=== PATIENT | male | born 1960 | race Caucasian/White ===

== ENCOUNTER 2018-07-21 23:35 | Emergency (ER) | payer OTHER ==
[~2018-07-21] VITALS: Ht 172.7 cm; Wt 108.9 kg
--- OUTSIDE RECORDS SUMMARY | 2018-07-21 23:46 | XMS REPORT | Continuity of Care Document ---
Demographics Preferred Language Unknown Marital Status Unknown Samaritan Affiliation Unknown Race Unknown Ethnic Group Unknown Author Author [facility] [place] Address Unknown Phone Unavailable Allergies There is no data. Medications There is no data. Problems Date Dx Coded Attending Type Code Diagnosis Diagnosed By 12/16/2012 522.5 PERIAPICAL ABSCESS WITHOUT SINUS Procedures There is no data. Results There is no data. Encounters ACCT No. Visit Date/Time Discharge Status Pt. Type Provider Facility Loc./Unit Complaint [id number] 12/16/2012 10:38:00 Document Registration
--- NOTE | 2018-07-22 01:28 | ED General ---
General Chief Complaint: Lower Extremity Stated Complaint: LEFT KNEE PAIN-PULLED SOMTHING- Nursing Triage Note: left posterior knee pain Nursing Sepsis Screen: No Definite Risk Source of Information: Patient Exam Limitations: No Limitations Allergies and Home Medications Allergies Coded Allergies: No Known Drug Allergies (Unverified , 07/22/18) Home Medications No Active Prescriptions or Reported Meds Past Enffnmg-Cojvvd-Fozbqf Hx Patient Social History Alcohol Use: Rarely Uses Recreational Drug Use: No Smoking Status: Current Everyday Smoker Type Used: Cigarettes 2nd Hand Smoke Exposure: Yes Recent Foreign Travel: No Contact w/Someone Who Travel: No Recent Infectious Disease Expo: No Recent Hopitalizations: No Immunizations Up To Date Tetanus Booster (TDap): Unknown Seasonal Allergies Seasonal Allergies: No Past Medical History Surgeries: Yes (back, skin graft) Orthopedic Respiratory: No Cardiac: No Neurological: No Genitourinary: No Gastrointestinal: No Musculoskeletal: Yes Chronic Back Pain Endocrine: No HEENT: No Cancer: No Psychosocial: No Integumentary: No Blood Disorders: No Physical Exam Vital Signs Vital Signs - First Documented 07/21/18 23:58 Temp 98.9 Pulse 79 Resp 18 B/P (MAP) 173/99 (123) Pulse Ox 96 O2 Delivery Room Air Capillary Refill : Less Than 3 Seconds Height, Weight, BMI Height: 5'8.00" Weight: 240lbs. oz. 108.121519db; BMI Method:Stated Progress/Results/Core Measures Suspected Sepsis Recent Fever Within 48 Hours: No Infection Criteria Present: None New/Unexplained Altered Menta: No Sepsis Screen: No Definite Risk SIRS Temperature:98.9 Pulse: 79 Respiratory Rate: 18 Blood Pressure 173 /99 Mean: 123 Results/Orders My Orders Orders - TIM MEDINA MD Knee, Left, 3 Views (07/22/18 00:37) Vital Signs/I&O 07/21/18 23:58 Temp 98.9 Pulse 79 Resp 18 B/P (MAP) 173/99 (123) Pulse Ox 96 O2 Delivery Room Air Capillary Refill : Less Than 3 Seconds Blood Pressure Mean: 123 Departure Impression Primary Impression: Left knee pain Qualified Codes: M25.562 - Pain in left knee Additional Impression: Left knee injury Qualified Codes: S89.92XA - Unspecified injury of left lower leg, initial encounter Disposition: 01 HOME, SELF-CARE Condition: Stable Departure-Patient Inst. Decision time for Depature: 01:26 Referrals: NO,LOCAL PHYSICIAN (PCP/Family) Primary Care Physician Patient Instructions: Jean's Cyst Add. Discharge Instructions: You may treat pain with ibuprofen up to 600 mg every 6 hours as needed. Add Tylenol (acetaminophen) up to 1000 mg every 6 hours as needed for additional relief. You may ice in 20 minute intervals as well. Elevation and compressive wrapping with an Tony wrap might also help with pain. Contact occupational health at the number provided on your Worker's Compensation form before scheduling your ultrasound. Return to care if you have worsening symptoms. All discharge instructions reviewed with patient and/or family. Voiced understanding. Scripts No Active Prescriptions or Reported Meds TIM MEDINA MD Jul 22, 2018 01:28
[2018-07-22 01:35] VITALS: BP 174/102
--- NOTE | 2018-07-22 06:55 | Diagnostic Imaging Report ---
INDICATION: Left knee pain. FINDINGS: 3 views. The left knee shows no fractures or dislocation. Articulating surfaces are smooth. No loose bodies. IMPRESSION: Normal left knee. Dictated by: Dictated on workstation # [id number]
== END 2018-07-22 01:38 | disposition home or self-care (01) ==
LOC: EDUNIT# 23:35 → ER 23:40
DX: S89.92XA Unspecified injury of left lower leg, initial encounter (principal); F17.210 Nicotine dependence, cigarettes, uncomplicated; Z98.890 Other specified postprocedural states; Z94.5 Skin transplant status; X50.0XXA Overexertion from strenuous movement or load, initial encounter
CPT/HCPCS: 73562

== ENCOUNTER → 2018-07-23 | Outpatient (CLI) | payer BC ==
--- NOTE | 2018-07-23 15:52 | Diagnostic Imaging Report ---
INDICATION: Left leg pain. Left leg venous Doppler study was performed in the routine fashion with color flow Doppler and waveform analysis. FINDINGS: The left common femoral vein, superficial femoral vein, popliteal vein and visualized portion of the posterior tibial vein show normal compressibility and venous flow patterns. There is normal augmentation. There is a Jean's cyst in left popliteal fossa measuring 3.8 x 2.5 x 1.1 centers. IMPRESSION: No evidence of deep vein thrombosis of the major veins of the left leg. Dictated by: Dictated on workstation # [id number]
== END ==
LOC: RAD 15:07
PROVIDERS: ATTEND Nurse Practitioner Family
DX: M79.605 Pain in left leg (principal)

== ENCOUNTER 2019-06-15 09:15 | Outpatient (CLI) | payer BC ==
[~2019-06-15] VITALS: Ht 172 cm; Wt 100.3 kg
[2019-06-15] MEDS ORDERED: IBUP-2185 PO (09:37)
[2019-06-15] MEDS ORDERED: LISI40TA PO (09:37)
[2019-06-15] MEDS ORDERED: HYDR12.56 PO (09:37)
[2019-06-15 09:44] VITALS: BP 122/82
[2019-06-15 10:16] LABS: BILIRUBIN,URINE NEGATIVE (NEGATIVE); CLARITY,URINE CLEAR; COLOR,URINE YELLOW; GLUCOSE, URINE (UA) NEGATIVE (NEGATIVE); KETONES,URINE NEGATIVE (NEGATIVE); LEUKOCYTE ESTERASE ,URINE NEGATIVE (NEGATIVE); NITRITE,URINE NEGATIVE (NEGATIVE); PROTEIN,URINE NEGATIVE (NEGATIVE)
[2019-06-15 10:23] LABS: BASOPHILS % (AUTO) 0 % (0-10); EOSINOPHILS # (AUTO) 0.5 10^3/uL (0.0-0.3); EOSINOPHILS % (AUTO) 5 % (0-10); HEMATOCRIT 46 % (40-54); HEMOGLOBIN 16.1 G/DL (13.3-17.7); LYMPHOCYTES % (AUTO) 19 % (12-44); MEAN CORPUSCULAR HEMOGLOBIN 31 PG (25-34); MEAN CORPUSCULAR HGB CONC 35 G/DL (32-36); MEAN CORPUSCULAR VOLUME 88 FL (80-99); MEAN PLATELET VOLUME 12.4 FL (7.4-10.4); MONOCYTES # (AUTO) 0.9 X 10^3 (0.0-1.0); MONOCYTES % (AUTO) 9 % (0-12); NEUTROPHILS # (AUTO) 6.9 X 10^3 (1.8-7.8); NEUTROPHILS % (AUTO) 67 % (42-75); PLATELET COUNT 143 10^3/uL (130-400); RED CELL DISTRIBUTION WIDTH 13.6 % (10.0-14.5); WHITE BLOOD COUNT 10.3 10^3/uL (4.3-11.0)
[2019-06-15 10:27] LABS: INR 0.8 (0.8-1.4); PROTHROMBIN TIME PATIENT 11.6 SEC (12.2-14.7)
[2019-06-15 10:31] LABS: BACTERIA,URINE NEGATIVE /HPF; SQUAMOUS EPITHELIAL CELL,UR RARE /HPF
[2019-06-15 10:37] LABS: ALANINE AMINOTRANSFERASE 45 U/L (0-55); ALBUMIN 4.7 GM/DL (3.2-4.5); ALKALINE PHOSPHATASE 76 U/L (40-136); BILIRUBIN,TOTAL 0.4 MG/DL (0.1-1.0); BUN/CREATININE RATIO 27; CALCIUM 9.6 MG/DL (8.5-10.1); CARBON DIOXIDE 22 MMOL/L (21-32); CHLORIDE 105 MMOL/L (98-107); CREATININE SERUM 0.96 MG/DL (0.60-1.30); GFR ESTIMATED > 60; GLUCOSE 101 MG/DL (70-105); POTASSIUM 3.9 MMOL/L (3.6-5.0); SODIUM 140 MMOL/L (135-145); TOTAL PROTEIN 7.5 GM/DL (6.4-8.2)
[2019-06-15 10:43] LABS: ERYTHROCYTE SEDIMENTATION RATE 1 MM/HR (0-30)
--- NOTE | 2019-06-15 11:16 | Diagnostic Imaging Report ---
INDICATION: Preoperative evaluation for knee replacement. COMPARISON: None FINDINGS: Frontal and lateral views of the chest demonstrate normal heart size and pulmonary vascularity. The lungs are clear. There are no signs of infiltrate, pleural effusions or pneumothoraces. The visualized osseous structures show no acute abnormalities. IMPRESSION: 1. No acute process. No signs of infiltrates, effusions or pneumothoraces. Dictated by: Dictated on workstation # [id number]
== END 2019-06-15 15:30 ==
LOC: PREOP 09:15
PROVIDERS: ATTEND Orthopaedic Surgery
DX: Z01.818 Encounter for other preprocedural examination (principal); Z01.812 Encounter for preprocedural laboratory examination; M17.11 Unilateral primary osteoarthritis, right knee
CPT/HCPCS: 36415; 71046; 80053; 81000; 85025; 85610; 85652; 86850; 86900; 86901; 87081; 93005

== ENCOUNTER 2019-06-23 05:54 | Inpatient (IN) | payer BC ==
--- NOTE | 2019-06-16 05:20 | HISTORY AND PHYSICAL ---
DATE OF SERVICE: ADMISSION HISTORY AND PHYSICAL This will be for inpatient admission on 06/23/2019 for right total knee arthroplasty. The patient will require regular inpatient admission for pain management and need for physical therapy and impaired mobility. HISTORY: The patient is a 58-year-old gentleman with progressively worsening right knee pain. Radiographs reveal severe tricompartmental osteoarthritis. He has undergone treatment with injections, activity modifications, and anti-inflammatories without relief. Due to progressive functional impairment and failure to improve with conservative measures, the patient was elected to proceed with surgical intervention. REVIEW OF SYSTEMS: No chest pain, no shortness of breath, no dysuria. PAST MEDICAL HISTORY: Hypertension. PAST SURGICAL HISTORY: Lumbar spine and skin graft. FAMILY HISTORY: Noncontributory. PRIMARY CARE PROVIDER: Dr. Rodriguez. MEDICATIONS: Lisinopril and Chantix. ALLERGIES: No known drug allergies. SOCIAL HISTORY: The patient is a 2-pack per day smoker and drinks alcohol regularly. PHYSICAL EXAMINATION: GENERAL: The patient is well developed, well nourished, in no acute distress. HEENT: Normocephalic, atraumatic. Pupils are equal, round, reactive to light. Oropharynx is clear. NECK: Supple, no lymphadenopathy. LUNGS: Clear to auscultation bilaterally. HEART: Regular rate and rhythm. ABDOMEN: Soft, nontender, nondistended. EXTREMITIES: The right knee demonstrates varus alignment. He is tender along his medial joint line and has prominent osteophyte formation medially. He has patellofemoral crepitus with range of motion of 0/2/135. He is ligamentously stable in all planes. He has a moderate effusion noted. He ambulates with an antalgic gait. IMPRESSION: Right knee severe osteoarthritis, unresponsive to conservative measures. PLAN: Right total knee arthroplasty. The risks, benefits, options, ramifications and recovery have been discussed at length with the patient. He understands and wishes to proceed. Job ID: [id number] DocumentID: [id number] Dictated Date: 06/10/2019 11:34:43 Bell Spinner Date: 06/10/2019 12:08:57 Dictated By: ARACELI AGUDELO MD
[~2019-06-23] VITALS: Ht 172 cm; Wt 100.3 kg
[2019-06-23] VITALS (11 sets, daily range): BP systolic 106–142; BP diastolic 66–91
[~2019-06-23 05:54] MED LIST: HYDR12.56 PO; IBUP-2185 PO; LISI40TA PO
[2019-06-23] MEDS ORDERED: MIDAZOLAM 2 MG/2 ML (VERSED) VIAL ONE (06:41)
[2019-06-23] MEDS ORDERED: fentaNYL INJECTION 100 MCG/2 ML AMP ONE (06:41)
[2019-06-23] MEDS ORDERED: BUPIVACAINE 0.25% 30 ML (SENSORCAINE) VIAL ONE (06:41)
[2019-06-23] MEDS ORDERED: CEFUROXIME 1.5 GM (ZINACEF) VIAL ONE ×2 (06:46→06:47)
[2019-06-23] MEDS ORDERED: WATER (STERILE) FOR INJECTION 20 ML ONE (06:46)
[2019-06-23] MEDS ORDERED: LIDOCAINE PF 2% 5 ML (XYLOCAINE) VIAL ONE (07:12)
[2019-06-23] MEDS ORDERED: INTRA-ARTICULAR IU ONE ×5 (07:45)
[2019-06-23] MEDS ORDERED: HYDROmorphone 2 MG/ML VIAL (DILAUDID) ONE (08:05)
[2019-06-23] MEDS ORDERED: BUPIVACAINE 0.5% 30 ML (SENSORCAINE) VIAL ONE (08:10)
[2019-06-23] MEDS ORDERED: LACTATED RINGERS 1,000 ML IV PRN (08:23)
[2019-06-23] MEDS ORDERED: CEFUROXIME INJECTION 1,500 MG in WATER (STERILE) FOR INJECTION 15 ML IV ONE (08:30)
[2019-06-23] MEDS ORDERED: TRANEXAMIC ACID 100 MG/ML 10 ML INJECTION IV ONE (08:38)
[2019-06-23] MEDS ORDERED: proPOfol 200 MG/20 ML (DIPRIVAN) VIAL IV ONE (08:38)
[2019-06-23] MEDS ORDERED: ONDANSETRON 4 MG/2 ML (SDV) Z0FRAN ONE (08:38)
[2019-06-23] MEDS ORDERED: SEVOFLURANE (ULTANE) 15 ML INHAL SOLN ONE ×2 (09:01→11:55)
--- NOTE | 2019-06-23 09:06 | Progress Note-Pre Operative ---
Pre-Operative Progress Note H&P Reviewed The H&P was reviewed, patient examined and no changes noted. Date Seen by Provider: Jun 23, 2019 Time Seen by Provider: 07:00 Date H&P Reviewed: Jun 23, 2019 Time H&P Reviewed: 06:58 Pre-Operative Diagnosis: right knee primary osteoarthritis ARACELI AGUDELO MD Jun 23, 2019 09:06
--- NOTE | 2019-06-23 09:08 | Progress Note-Post Operative ---
Post-Operative Progess Note Surgeon (s)/[employer] (s) Surgeon ARACELI AGUDELO MD [employer]: Vinod Perkins Pre-Operative Diagnosis right knee primary osteoarthritis Post-Operative Diagnosis right knee primary osteoarthritis Procedure & Operative Findings Date of Procedure 06/23/19 Procedure Performed/Findings right total knee arthroplasty Anesthesia Type GETA Estimated Blood Loss Estimated blood loss (mL): minimal Specimens/Packing Specimens Removed none Packing: none ARACELI AGUDELO MD Jun 23, 2019 09:08
--- NOTE | 2019-06-23 09:11 | D/C HH Face to Face Order ---
D/C Face to Face Orders Reconcile Patient Problems Problems Reviewed?: Yes Instructions for Patient Via [employer], Patient Instructions/FollowUp: three weeks Physician to follow Patient: three weeks Discharge Diet for Home: Regular Diet Patient Data-Allergies,Ht & Wt Patient Allergies: Coded Allergies: No Known Drug Allergies (Unverified , 06/15/19) Height (Feet): 5 Height (Inches): 8.00 Weight (Pounds): 240 Home Health Need/Face to Face Date of Face to Face: Jun 23, 2019 Clinical Findings: Instability, Muscle weakness, Pain with ambulation, Unsteady gait I have seen Pt cajn-nk-cabs: Yes Discharged To: Home Diagnosis/Conditions: right total knee arthroplasty Patient is Homebound due to: Martínez fall risk due to instabilty, Muscle weakness, Pain w/ambulation Homebound Status Due to the above stated illness, injury or surgical procedure (medical condition or diagnosis) and associated clinical findings, the patient is homebound because of his/her inability to leave home except with aid of a supportive device and/or person AND leaving the home requires a considerable and taxing effort or is medically contraindicated. Pt req the following assistanc: [facility] Nursing Orders DC right knee nuzhat and apply steri strips 07/08/19 Home Health Infusion Therapy Line Start Date: Jun 23, 2019 Therapy Orders Therapy Orders: Physical Therapy, PT to assess for OT Therapy Specific Orders: Eval assistive deivces, Teach strategies/cognitive def icits, Gait training, Increase strength/endurance, Provider maintenance therapy, Restore ROM Certify Stmt I certify that this patient is under my care and that I, a nurse practitioner or a physician; a assistant signal maintainer working with me, had a face to face encounter that - meets the physician face to face encounter requirements with this patient as dated. ARACELI AGUDELO MD Jun 23, 2019 09:11
[2019-06-23] MEDS ORDERED: ONDANSETRON 4 MG/2 ML (SDV) Z0FRAN IVP PRN ×2 (09:15)
[2019-06-23] MEDS ORDERED: ACETAMINOPHEN 325 MG TABLET PO PRN (09:15)
[2019-06-23] MEDS ORDERED: HYDROmorphone 2 MG/ML VIAL (DILAUDID) IV ONE (09:15)
[2019-06-23] MEDS ORDERED: diphenhydrAMINE 50 MG/ML INJ (BENADRYL) IVP PRN (09:15)
--- NOTE | 2019-06-23 09:40 | Diagnostic Imaging Report ---
INDICATION: Status post knee replacement. COMPARISON: None. FINDINGS: Two views of the right knee were obtained. Expected postoperative changes are seen from right knee total arthroplasty. Femoral and tibial components appear well-seated. There is no evidence of periprosthetic fracture. There is a small amount of subcutaneous emphysema in the soft tissues over the knee. Skin nuzhat are seen centrally over the anterior aspect of the knee. No unexpected radiopaque foreign bodies are identified. IMPRESSION: Expected postsurgical changes from right knee total arthroplasty, as described above. No unexpected radiopaque foreign bodies. Dictated by: Dictated on workstation # [id number]
--- NOTE | 2019-06-23 09:56 | Progress Note ---
Standard Progress Note Progress Notes/Assess & Plan Date Seen by a Provider: Jun 23, 2019 Time Seen by a Provider: 09:54 Progress/Assessment & Plan post op check no complaints radiographs--HW well positioned without fracture RLE--2 plus DP pulse with brisk cap refill. intact sensation to light touch throughout. Intact DF and PF of toes and ankle s/p RTKA mobilize as able ARACELI AGUDELO MD Jun 23, 2019 09:56
[2019-06-23] MEDS ORDERED: NS IV 1000 ML 1,000 ML ONE (10:17)
[2019-06-23] MEDS: NS IV 1000 ML 1,000 ML IV SCH ×2 (11:05→23:48)
[2019-06-23] MEDS: morphine PCA 100 MG/100 ML BAG IV PRN (11:07)
--- NOTE | 2019-06-23 11:40 | Physical Therapy Evaluation ---
PT Evaluation-General Medical Diagnosis Admission Date Jun 23, 2019 at 05:54 Medical Diagnosis: (R) knee OA Onset Date: Jun 23, 2019 Therapy Diagnosis Therapy Diagnosis: (R) TKA; impaired mobility Height/Weight Height (Feet): 5 Height (Inches): 8.00 Weight (Pounds): 240 Precautions Precautions/Isolations: Standard Precautions Weight Bear Status Weight Bearing/Tolerated Weight Bearing/Tolerated Referral Physician: Sin Albright Reason for Referral: Evaluation/Treatment Medical History Pertinent Medical History: HTN Additional Medical History Lumbar Surgery, regular use of cigarettes and alcohol Current History Patient underwent elective right TKA due to progressive deterioration of the joint that failed to respond to conservative measures. Prior Prior Level of Function SCALE: Activities may be completed with or without assistive devices. 5-Zamnmtbzrn-swzlemi completes the activity by him/herself with no assistance from a helper. 5-Set-up or Clean-up Assistance-helper sets up or cleans up; patient completes activity. Inlet assists only prior to or following the activity. 4-Supervision or Touching Assistance-helper provides verbal cues and/or touching/steadying and/or contact guard assistance as patient completes activity. Assistance may be provided throughout the activity or intermittently. 3-Partial/Moderate Assistance-helper does LESS THAN HALF the effort. Inlet lifts, holds or supports trunk or limbs, but provides less than half the effort. 2-Substantial/Maximal Assistance-helper does MORE THAN HALF the effort. Inlet lifts or holds trunk or limbs and provides more than half the effort. 6-Ordiugedp-evpger does ALL the effort. Patient does none of the effort to complete the activity. Or, the assistance of 2 or more helpers is required for the patient to complete the activity. If activity was not attempted, code reason: 7-Patient Refused. 9-Not Applicable-not attempted and the patient did not perform the activity before the current illness, exacerbation or injury. 10-Not Attempted due to Environmental Limitations-(lack of equipment, weather restraints, etc.). 88-Not Attempted due to Medical Conditions or Safety Concerns. JOSESITO STEINER PT Jun 23, 2019 11:40
--- NOTE | 2019-06-23 14:18 | OPERATIVE REPORT ---
DATE OF SERVICE: 06/23/2019 PREOPERATIVE DIAGNOSIS: Right knee primary osteoarthritis. POSTOPERATIVE DIAGNOSIS: Right knee primary osteoarthritis. PROCEDURE: Right total knee arthroplasty. SURGEON: Sin Agudelo MD NURSE AIDE: Vinod Perkins, who assisted throughout the procedure and closed the incision. ANESTHESIA: General endotracheal by Michelle Brady CRNA. TOURNIQUET TIME: Approximately 60 minutes at 300 mmHg. ESTIMATED BLOOD LOSS: Minimal. DRAINS: None. COMPLICATIONS: None. POSTOPERATIVE PLAN: Routine protocol. MATERIALS: Microport cemented size 5 femur, cemented size 6 tibia with a 10 mm insert and cemented size 35 patellar button. STATEMENT OF MEDICAL NECESSITY: The patient is a 58-year-old gentleman with longstanding progressive right knee pain. Radiographs revealed severe tricompartmental osteoarthritis. He has undergone treatment with injections, anti-inflammatories and rest without relief and due to functional impairment and failure to improve with conservative measures, the patient elected to proceed with surgical intervention. DESCRIPTION OF PROCEDURE: After risks and benefits of procedure were discussed and questions were answered, an informed consent was signed and placed on the chart. The operative site was confirmed in the preoperative holding area initialed by the surgeon. The patient was then transferred to the operating room and after adequate levels of general endotracheal anesthetic were obtained, a timeout was called, confirming the operative site. The right lower extremity was prepped and draped in the usual sterile fashion. With the leg elevated and the knee flexed, tourniquet was inflated to 300 mmHg. Standard anterior approach was utilized. Hemostasis was obtained with cautery. Medial parapatellar arthrotomy was performed leaving 1 cm cuff on the patella for later reattachment. A portion of the fat pad was resected. A subperiosteal release was carefully performed on the proximal medial tibia with curved osteotome. The ACL was resected. The intramedullary guide was passed into the femur and the distal cutting block was placed. Distal cut was made and femur was sized to a size 5, the 5 cutting block was placed parallel to the epicondylar axis and the cuts were made from posterior to anterior. A subperiosteal release was then carefully performed on the posterior distal femur, being careful to stay on the bony surface. Intramedullary guide was then passed into the tibia. The cutting block was placed. Drop anisha transected the intermalleolar axis and the cut was made. Baseplate was placed. The drop anisha transected the intermalleolar axis and the tibia was prepared with a drill and keel punch. The femoral trial was then placed and the trochlear cut was made. The patella was then prepared using the freehand technique by resecting 10 mm off the undersurface. Peg guide was placed and peg holes were drilled. The trials were inserted with 10 mm insert and 35 patellar button. The knee was taken through range of motion. Full extension was easily obtained 120 degrees of flexion with gravity was easily obtained. There was no anterior/posterior or medial/lateral laxity in flexion or extension and the patella tracked well. The trials were removed. Joint was irrigated with pulse lavage. The tibia was irrigated and dried and the tibial baseplate was cemented into position. Excessive cement was removed. The superior surface was irrigated and dried and the polyethylene insert was placed. Distal femur was irrigated and dried and the femoral prosthesis was cemented into position. The knee was brought in to full extension and held there until cement had cured. The undersurface of the patella was irrigated and dried and the patellar button was cemented into position. Once the cement had cured, the knee was taken through range of motion. Full extension was easily obtained 120 degrees of flexion with gravity was easily obtained. There was no anterior/posterior or medial/lateral laxity in flexion or extension. The patella tracked well. The joint was further irrigated with pulse lavage. The arthrotomy was closed with #2 Tevdek in qigpqm-gf-tyffj interrupted fashion. Knee was flexed. The repair was stable with well tracking patella. The subcutaneous tissues were irrigated using a total of 6 liters throughout the procedure. A 0 Vicryl was used for the deep subcutaneous tissue, 2-0 Vicryl for the superficial subcutaneous tissue, nuzhat used on the skin. A soft dressing was applied and the patient was transferred to the recovery room awake and in stable condition. Job ID: [id number] DocumentID: [id number] Dictated Date: 06/23/2019 09:09:37 Mat Machine Operator Date: 06/23/2019 14:17:53 Dictated By: SIN AGUDELO MD
--- NOTE | 2019-06-23 14:20 | Physical Therapy Evaluation ---
PT Evaluation-General Medical Diagnosis Admission Date Jun 23, 2019 at 05:54 Medical Diagnosis: right TKA Onset Date: Jun 23, 2019 Therapy Diagnosis Therapy Diagnosis: impaired mobility, strength, endurance, ROM Height/Weight Height (Feet): 5 Height (Inches): 8.00 Weight (Pounds): 240 Precautions Precautions/Isolations: Standard Precautions Weight Bear Status Weight Bearing/Tolerated Weight Bearing/Tolerated Referral Physician: Sin Albright Reason for Referral: Evaluation/Treatment Medical History Pertinent Medical History: HTN Additional Medical History PAST MEDICAL HISTORY: Hypertension. PAST SURGICAL HISTORY: Lumbar spine and skin graft. Reviewed History: Yes Social History Home: Single Level Current Living Status: Children Entry Into Home: Stairs Without Railing PT Steps Into Home: 2 Patient states he is going to have help at home because he will stay with his daughter for a while Prior Prior Level of Function SCALE: Activities may be completed with or without assistive devices. 5-Raczfcdlmh-umafzce completes the activity by him/herself with no assistance from a helper. 5-Set-up or Clean-up Assistance-helper sets up or cleans up; patient completes activity. [place] assists only prior to or following the activity. 4-Supervision or Touching Assistance-helper provides verbal cues and/or touching/steadying and/or contact guard assistance as patient completes activity. Assistance may be provided throughout the activity or intermittently. 3-Partial/Moderate Assistance-helper does LESS THAN HALF the effort. [place] lifts, holds or supports trunk or limbs, but provides less than half the effort. 2-Substantial/Maximal Assistance-helper does MORE THAN HALF the effort. [place] lifts or holds trunk or limbs and provides more than half the effort. 8-Imdttvbqp-zibtji does ALL the effort. Patient does none of the effort to complete the activity. Or, the assistance of 2 or more helpers is required for the patient to complete the activity. If activity was not attempted, code reason: 7-Patient Refused. 9-Not Applicable-not attempted and the patient did not perform the activity before the current illness, exacerbation or injury. 10-Not Attempted due to Environmental Limitations-(lack of equipment, weather restraints, etc.). 88-Not Attempted due to Medical Conditions or Safety Concerns. Bed Mobility: 6 Transfers (B,C,W/C): 6 Gait: 6 Stairs: 6 Indoor Mobility (Ambulation): Independent Stairs: Independent PT Evaluation-Current Subjective Patient in bed pre tx, agrees to PT, has 3/10 pain in right knee. Pt/Family Goals to be independent at home Objective Patient Orientation: Person, Place, Situation Attachments: IV ROM/Strength ROM Lower Extremities right knee flexion 70 degrees, extension +5 degrees Strength Lower Extremities NT due to recent surgery Sensory Vision: Wears Glasses Hearing: Functional Sensation Right Lower Extremit: Impaired Sensation Left Lower Extremity: Intact Sensation Lower Extremities Patient still has numbness around right knee, has sensation in foot. Transfers Roll Left to Right (QC): 4 Sit to Lying (QC): 4 Lying to Sitting/Side of Bed(Q: 4 Sit to Stand (QC): 4 Chair/Ior-th-Daqnm Xfer(QC): 4 Car Transfer (QC): 10 Patient performs bed mobility and supine <-> sit with SBA, sit <-> stand and transfers with CGA. Cues for hand placement, can be a little impulsive. Gait Does the Patient Walk?: Yes Mode of Locomotion: Walk Anticipated Mode of Locomotion: Walk Walk 10 feet (QC): 4 Walk 50 ft with 2 Turns(QC): 4 Walk 150 ft (QC): 88 Walking 10ft/uneven surface-QC: 88 Distance: 80' Gait Assistive Device: FWW Comments/Gait Description Patient ambulates slowly, antalgic, poor step through on the left side, flexed right knee. Wheelchair Training Does the Pt Use a Wheelchair?: No Wheel 50 ft with 2 turns (QC): 10 Wheel 150 ft (QC): 10 Type of Wheelchair: Manual Stairs 1 Step (curb) (QC): 88 4 Steps (QC): 88 12 Steps (QC): 88 Balance Sitting Static: Normal Sitting Dynamic: Normal Standing Static: Good Standing Dynamic: Good Picking up an Object (QC): 88 Treatment Patient performed TKA protocol exercises on RLE x10 (AP, QS, HS, SAQ, SLR), and CPM placed on right leg and fit to leg and set to 60/-2. Assessment/Needs Patient has impaired mobility, strength, endurance, ROM, he ambulated well for the first time but can be a little impulsive. Patient in bed post tx with nurse call, phone, tray, SCD's and polar care on. Rehab Potential: Fair PT Infant Nanny Goals Assisted Goals PT Assisted Goals Time Frame: Jun 30, 2019 Roll Left & Right (QC): 6 Sit to Lying (QC): 6 Lying-Sitting on Side/Bed(QC): 6 Sit to Stand (QC): 6 Chair/Btf-hp-Selyf Xfer(QC): 6 Toilet Transfer (QC): 10 Car Transfer (QC): 10 Does the Patient Walk: Yes Walk 10 feet (QC): 6 Walk 50ft with 2 Turns (QC): 6 Walk 150 ft (QC): 6 Walking 10ft on Uneven Surface: 10 1 Step (curb) (QC): 4 4 Steps (QC): 4 12 Steps (QC): 88 Picking up an Object (QC): 88 Does the Pt use WC or Scooter?: No Type: N/A Type: N/A PT Plan Problem List Problem List: Activity Tolerance, Functional Strength, Safety, Balance, Gait, Transfer, Bed Mobility, ROM Treatment/Plan Treatment Plan: Continue Plan of Care Treatment Plan: Bed Mobility, Education, Functional Activity Cassy, Functional Strength, Gait, Safety, Therapeutic Exercise, Transfers Treatment Duration: Jun 30, 2019 Frequency: 11 times per week Estimated Hrs Per Day: .25 hour per day Patient and/or Family Agrees t: Yes Safety Risks/Education Patient Education: Gait Training, Transfer Techniques, Correct Positioning, Safety Issues Teaching Recipient: Patient Teaching Methods: Demonstration, Discussion Response to Teaching: Reinforcement Needed Discharge Recommendations Plan Patient will perform bed mobility and transfer training, balance and endurance training, functional strengthening, stair training, gait training, and education, to improve functional mobility and independence at home. Therapy Discharge Recommendati: Other, See Comments (home with family) Time/GCodes Time In: 1322 Time Out: 1347 Total Billed Treatment Time: 25 Total Billed Treatment 1 visit EVL 15' FA 10' LOUISE SCANLON PT Jun 23, 2019 14:20
[2019-06-23] MEDS: oxyCODONE/APAP 5/325MG (PERCOCET 5) TABLET PO PRN ×2 (17:16→19:27)
[2019-06-23] MEDS: CEFUROXIME INJECTION 750 MG in WATER (STERILE) FOR INJECTION 10 ML IV SCH (17:17)
[2019-06-23] MEDS: SENNA W/DOCUSATE (SENOKOT S) TABLET PO SCH (19:26)
[2019-06-24] VITALS: BP 138/76
[2019-06-24] MEDS: CEFUROXIME INJECTION 750 MG in WATER (STERILE) FOR INJECTION 10 ML IV SCH (01:07)
[2019-06-24] MEDS: oxyCODONE/APAP 5/325MG (PERCOCET 5) TABLET PO PRN ×6 (01:07→17:00)
[2019-06-24 04:00] VITALS: BP 163/87
[2019-06-24] MEDS: MULTIVIT W/MINERALS TAB (THERAGRAN M) PO SCH (05:53)
--- NOTE | 2019-06-24 08:02 | Progress Note ---
Standard Progress Note Progress Notes/Assess & Plan Date Seen by a Provider: Jun 24, 2019 Time Seen by a Provider: 08:01 Progress/Assessment & Plan post op check no complaints radiographs--HW well positioned without fracture RLE--2 plus DP pulse with brisk cap refill. intact sensation to light touch throughout. Intact DF and PF of toes and ankle s/p RTKA mobilize as able Final Diagnosis no complaints Vital Signs Date Time Temp Pulse Resp B/P (MAP) Pulse Ox O2 Delivery O2 Flow Rate FiO2 06/24/19 06:43 36.8 06/24/19 04:00 36.8 79 21 163/87 (112) 97 Room Air 06/24/19 03:40 36.8 06/24/19 01:37 36.8 06/24/19 00:00 36.8 80 20 138/76 (96) 95 Room Air 06/23/19 21:00 94 Room Air 10.00 06/23/19 20:20 37.1 87 20 137/73 (94) 94 Room Air 06/23/19 17:46 36.9 06/23/19 16:50 36.9 76 18 126/69 (88) 97 Room Air 06/23/19 14:38 96 Room Air 06/23/19 12:00 36.5 66 16 127/75 (92) 95 Room Air 06/23/19 11:40 36.5 16 06/23/19 11:07 36.2 18 06/23/19 10:00 36.2 79 18 141/79 (99) 95 Room Air 06/23/19 09:55 Room Air 06/23/19 09:45 26 135/77 (96) 97 Room Air 06/23/19 09:45 95 Room Air 06/23/19 09:40 36.2 16 109/89 (96) 95 Room Air 06/23/19 09:30 OxyMask 10 06/23/19 09:30 14 125/90 (102) 99 OxyMask 10 06/23/19 09:20 16 126/91 (103) 98 OxyMask 10 06/23/19 09:10 16 142/74 (96) 98 OxyMask 10 06/23/19 09:05 OxyMask 10 06/23/19 09:05 36.1 18 128/77 (94) 98 OxyMask 10 I & O 06/24/19 07:00 Intake Total 2745 ml Balance 2745 ml Laboratory Tests Test 06/24/19 05:55 Range/Units Hemoglobin 13.0 L 13.3-17.7 G/DL Hematocrit 39 L 40-54 % RLE--dressing intact. NVI distally. No calf tenderness s/p RTKA doing well PT/OT ARACELI AGUDELO MD Jun 24, 2019 08:02
[2019-06-24 08:55] VITALS: BP 123/69
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
[2019-06-24] MEDS: ENOXAPARIN 30 MG/0.3 ML (LOVENOX) SYR SC SCH ×2 (09:28→20:59)
[2019-06-24] MEDS: ASPIRIN E.C. 81 MG (ECOTRIN) TAB PO SCH (09:28)
[2019-06-24] MEDS: SENNA W/DOCUSATE (SENOKOT S) TABLET PO SCH ×2 (09:28→20:59)
[2019-06-24] MEDS ORDERED: HYDROCHLOROTHIAZIDE 12.5 MG (HCTZ) CAP PO NR (09:30)
[2019-06-24] MEDS: NS IV 1000 ML 1,000 ML IV SCH ×2 (10:08→12:44)
[2019-06-24] MEDS: lisINopril 40 MG (PRINIVIL) TABLET PO SCH (10:20)
--- NOTE | 2019-06-24 10:23 | Physical Therapy Daily Note ---
PT Daily Note-Current Subjective Patient is yelling in pain with exercises with meds issued. Pain Numeric Pain Scale: 10-Worst Possible Pain Location: Right Location Body Site: Knee Pain Description: Acute Mental Status Patient Orientation: Normal For Age Attachments: IV Transfers SCALE: Activities may be completed with or without assistive devices. 1-Xobrhjtmzd-qrnguil completes the activity by him/herself with no assistance from a helper. 5-Set-up or Clean-up Assistance-helper sets up or cleans up; patient completes activity. [employer] assists only prior to or following the activity. 4-Supervision or Touching Assistance-helper provides verbal cues and/or touching/steadying and/or contact guard assistance as patient completes activity. Assistance may be provided throughout the activity or intermittently. 3-Partial/Moderate Assistance-helper does LESS THAN HALF the effort. [employer] lif ts, holds or supports trunk or limbs, but provides less than half the effort. 2-Substantial/Maximal Assistance-helper does MORE THAN HALF the effort. [employer] lifts or holds trunk or limbs and provides more than half the effort. 0-Aidxulztz-iurtgf does ALL the effort. Patient does none of the effort to complete the activity. Or, the assistance of 2 or more helpers is required for the patient to complete the activity. If activity was not attempted, code reason: 7-Patient Refused. 9-Not Applicable-not attempted and the patient did not perform the activity before the current illness, exacerbation or injury. 10-Not Attempted due to Environmental Limitations-(lack of equipment, weather restraints, etc.). 88-Not Attempted due to Medical Conditions or Safety Concerns. Roll Left & Right (QC): 5 Sit to Lying (QC): 5 Lying to Sitting/Side of Bed(Q: 5 Sit to Stand (QC): 5 Chair/Ewg-ad-Oyzlp Xfer(QC): 5 Weight Bearing Weight Bearing/Tolerated Weight Bearing/Tolerated Gait Training Does the Patient Walk?: Yes Distance: 175' Walk 10 feet (QC): 5 Walk 50 ft with 2 Turns(QC): 5 Walk 150 ft (QC): 5 Gait Assistive Device: FWW slow, antalgic, step to pattern with right knee flexed Exercises Supine Ex: Ankle pumps, Quad Set, Heel Slides, Straight leg raise Supine Reps: 12 Seated Therapy Exercises: Ankle pumps, Long arc quads Seated Reps: 15 Treatments CPM 0-[address] with polar pack Assessment Patient tolerates minimal activity and appears to self limit due to pain. RN aware and has issued medication prior. PT to increase activity as tolerated by patient. PT Care Home Goals Wet [employer]isher Wool Goals PT Care Home Goals Time Frame: Jun 30, 2019 Roll Left & Right (QC): 6 Sit to Lying (QC): 6 Lying-Sitting on Side/Bed(QC): 6 Sit to Stand (QC): 6 Chair/Kxl-qw-Vjgru Xfer(QC): 6 Toilet Transfer (QC): 10 Car Transfer (QC): 10 Does the Patient Walk: Yes Walk 10 feet (QC): 6 Walk 50ft with 2 Turns (QC): 6 Walk 150 ft (QC): 6 Walking 10ft on Uneven Surface: 10 1 Step (curb) (QC): 4 4 Steps (QC): 4 12 Steps (QC): 88 Picking up an Object (QC): 88 Does the Pt use WC or Scooter?: No Type: N/A Type: N/A PT Plan Treatment/Plan Treatment Plan: Continue Plan of Care Treatment Plan: Bed Mobility, Education, Functional Activity Cassy, Functional Strength, Gait, Safety, Therapeutic Exercise, Transfers Treatment Duration: Jun 30, 2019 Frequency: 11 times per week Estimated Hrs Per Day: .25 hour per day Patient and/or Family Agrees t: Yes Time/GCodes Time In: 910 Time Out: 933 Total Billed Treatment Time: 23 Total Billed Treatment 1 visit EX 12 min GT 11 min MATIAS JUÁREZ PT Jun 24, 2019 10:23
--- NOTE | 2019-06-24 10:56 | Anesthesia-General Post-Op ---
General Patient Condition Mental Status/LOC: Same as Preop Cardiovascular: Satisfactory Nausea/Vomiting: Absent Respiratory: Satisfactory Pain: Controlled Complications: Absent Post Op Complications Complications None Follow Up Care/Instructions Patient Instructions None needed. Anesthesia/Patient Condition Patient Condition Patient is doing well, no complaints, stable vital signs, no apparent adverse anesthesia problems. No complications reported per nursing. SISSY FLORIAN CRNA Jun 24, 2019 10:56
--- NOTE | 2019-06-24 14:14 | Physical Therapy Daily Note ---
PT Daily Note-Current Subjective Patient agrees to PT. Pain Numeric Pain Scale: 10-Worst Possible Pain Location: Right Location Body Site: Knee Pain Description: Acute Comment: with patient pill issued and BUGGY OPERATOR used Mental Status Patient Orientation: Normal For Age Attachments: IV Transfers SCALE: Activities may be completed with or without assistive devices. 1-Ezbjkcyqek-hxvcmau completes the activity by him/herself with no assistance from a helper. 5-Set-up or Clean-up Assistance-helper sets up or cleans up; patient completes activity. [place] assists only prior to or following the activity. 4-Supervision or Touching Assistance-helper provides verbal cues and/or touching/steadying and/or contact guard assistance as patient completes acti vity. Assistance may be provided throughout the activity or intermittently. 3-Partial/Moderate Assistance-helper does LESS THAN HALF the effort. [place] lifts, holds or supports trunk or limbs, but provides less than half the effort. 2-Substantial/Maximal Assistance-helper does MORE THAN HALF the effort. [place] lifts or holds trunk or limbs and provides more than half the effort. 1-Ohmeepzyt-fazwni does ALL the effort. Patient does none of the effort to complete the activity. Or, the assistance of 2 or more helpers is required for the patient to complete the activity. If activity was not attempted, code reason: 7-Patient Refused. 9-Not Applicable-not attempted and the patient did not perform the activity before the current illness, exacerbation or injury. 10-Not Attempted due to Environmental Limitations-(lack of equipment, weather restraints, etc.). 88-Not Attempted due to Medical Conditions or Safety Concerns. Roll Left & Right (QC): 6 Sit to Lying (QC): 6 Lying to Sitting/Side of Bed(Q: 6 Sit to Stand (QC): 6 Chair/Qgx-if-Yjhtt Xfer(QC): 6 Weight Bearing Weight Bearing/Tolerated Weight Bearing/Tolerated Gait Training Does the Patient Walk?: Yes Distance: 175' Walk 10 feet (QC): 6 Walk 50 ft with 2 Turns(QC): 6 Walk 150 ft (QC): 6 Gait Assistive Device: FWW slow, antalgic right flexed knee gait sequence Exercises Supine Ex: Ankle pumps, Quad Set, Heel Slides, Straight leg raise Supine Reps: 10 Seated Therapy Exercises: Long arc quads Seated Reps: 15 Assessment Patient tolerated treatment well and is up in recliner with needs met. PT to increase activity as tolerated by patient. PT Care Home Goals Nuclear Medicine Supervisor Goals PT Care Home Goals Time Frame: Jun 30, 2019 Roll Left & Right (QC): 6 Sit to Lying (QC): 6 Lying-Sitting on Side/Bed(QC): 6 Sit to Stand (QC): 6 Chair/Byb-fc-Pdbuo Xfer(QC): 6 Toilet Transfer (QC): 10 Car Transfer (QC): 10 Does the Patient Walk: Yes Walk 10 feet (QC): 6 Walk 50ft with 2 Turns (QC): 6 Walk 150 ft (QC): 6 Walking 10ft on Uneven Surface: 10 1 Step (curb) (QC): 4 4 Steps (QC): 4 12 Steps (QC): 88 Picking up an Object (QC): 88 Does the Pt use WC or Scooter?: No Type: N/A Type: N/A PT Plan Treatment/Plan Treatment Plan: Continue Plan of Care Treatment Plan: Bed Mobility, Education, Functional Activity Cassy, Functional Strength, Gait, Safety, Therapeutic Exercise, Transfers Treatment Duration: Jun 30, 2019 Frequency: 11 times per week Estimated Hrs Per Day: .25 hour per day Patient and/or Family Agrees t: Yes Time/GCodes Time In: 1300 Time Out: 1329 Total Billed Treatment Time: 29 Total Billed Treatment 1 visit EX 13 min GT 16 min MATIAS JUÁREZ PT Jun 24, 2019 14:14
--- NOTE | 2019-06-24 15:16 | Occ Therapy Progress Note ---
Therapy Progress Note OT order received. Spoke with pt. regarding occupational therapy, and what OT does. Pt. declines OOB activity, and states that he does not need OT services. OT educates him on need to make sure he is independent with ADLs before transfer home. Pt. verbalizes that he will be staying with his daughter, and that she will assist him. Pt. reports that he has a walker. Reports that he will have two shallow steps with handrail to use to get into daughter's home. Pt. assures this therapist that he does not need assistance at this time. OT educates pt. to let nursing/social work know if he does have any questions or concerns, and that this therapist would be happy to come back and educate him on ADL skills. This OT spoke with PT about pt's mobility. Pt. is doing well with mobility and transfers. Would be happy to come back if pt. needs further ADL training. 1, visit [id number] No further OT services JOSÉ IRBY OT Jun 24, 2019 15:16
[2019-06-24 16:00] VITALS: BP 112/57
[2019-06-25 00:27] VITALS: BP 133/62
[2019-06-25] MEDS: NS IV 1000 ML 1,000 ML IV SCH (01:42)
[2019-06-25] MEDS: morphine PCA 100 MG/100 ML BAG IV PRN (01:43)
[2019-06-25] MEDS: oxyCODONE/APAP 5/325MG (PERCOCET 5) TABLET PO PRN (03:44)
[2019-06-25 05:15] LABS: HEMOGLOBIN 11.3 G/DL (13.3-17.7)
[2019-06-25] MEDS: MULTIVIT W/MINERALS TAB (THERAGRAN M) PO SCH (06:14)
[2019-06-25] MEDS ORDERED: morphine INJ 4 MG/ML 1 ML (VIAL/SYRINGE) IVP PRN (07:00)
--- NOTE | 2019-06-25 07:00 | Progress Note ---
Standard Progress Note Progress Notes/Assess & Plan Date Seen by a Provider: Jun 25, 2019 Time Seen by a Provider: 06:59 Progress/Assessment & Plan post op check no complaints radiographs--HW well positioned without fracture RLE--2 plus DP pulse with brisk cap refill. intact sensation to light touch throughout. Intact DF and PF of toes and ankle s/p RTKA mobilize as able Final Diagnosis no complaints Vital Signs Date Time Temp Pulse Resp B/P (MAP) Pulse Ox O2 Delivery O2 Flow Rate FiO2 06/25/19 03:59 37.5 06/25/19 02:15 37.6 16 06/25/19 01:43 37.6 16 06/25/19 01:25 37.6 06/25/19 00:27 37.7 92 16 133/62 (85) 96 Room Air 06/24/19 21:00 Room Air 06/24/19 16:00 37.4 80 20 112/57 (75) 95 Room Air 06/24/19 09:45 95 Room Air 06/24/19 08:55 37.1 78 18 123/69 (87) 94 Room Air I & O 06/25/19 07:00 Intake Total 1804 ml Balance 1804 ml Laboratory Tests Test 06/25/19 04:55 Range/Units Hemoglobin 11.3 L 13.3-17.7 G/DL Hematocrit 34 L 40-54 % RLE--incision clean and dry. No calf tenderness. Neg Carola's s/p RTKA doing well DC after PT today ARACELI AGUDELO MD Jun 25, 2019 07:00
[2019-06-25 08:00] VITALS: BP 119/69
[2019-06-25] MEDS ORDERED: HYDROCHLOROTHIAZIDE 12.5 MG (HCTZ) CAP PO SCH (09:00)
[2019-06-25] MEDS: ASPIRIN E.C. 81 MG (ECOTRIN) TAB PO SCH (09:15)
[2019-06-25] MEDS: lisINopril 40 MG (PRINIVIL) TABLET PO SCH (09:16)
[2019-06-25] MEDS: ENOXAPARIN 30 MG/0.3 ML (LOVENOX) SYR SC SCH (09:16)
[2019-06-25] MEDS: SENNA W/DOCUSATE (SENOKOT S) TABLET PO SCH (09:16)
--- NOTE | 2019-06-25 09:41 | Progress Note ---
Objective Exam Last Set of Vital Signs Vital Signs Date Time Temp Pulse Resp B/P (MAP) Pulse Ox O2 Delivery O2 Flow Rate FiO2 06/25/19 03:59 37.5 06/25/19 02:15 16 06/25/19 00:27 92 133/62 (85) 96 Room Air 06/23/19 21:00 10.00 Capillary Refill : Less Than 3 Seconds I&O Intake and Output 06/25/19 00:00 Intake Total 2044 ml Balance 2044 ml Intake Oral 2044 ml # Voids 6 Results Lab Laboratory Tests 06/25/19 04:55: Hemoglobin 11.3L, Hematocrit 34L Assessment/Plan Assessment/Plan Assess & Plan/Chief Complaint RIGHT KNEE REPLACEMENT HYPERTENSION RIGHT KNEE REPLACEMENT HYPERTENSION Clinical Quality Measures DVT/VTE Risk/Contraindication: Risk Factor Score Per Nursin RFS Level Per Nursing on Admit: 3=High ELVIN BUSTAMANTE MD Jun 25, 2019 09:41
--- NOTE | 2019-06-25 10:03 | Physical Therapy Daily Note ---
PT Daily Note-Current Subjective Patient agrees to PT. Pain Numeric Pain Scale: 5-Moderate Pain Location: Right Location Body Site: Knee Pain Description: Acute Mental Status Patient Orientation: Normal For Age Transfers SCALE: Activities may be completed with or without assistive devices. 6-Htrfhlqysy-bskgrbg completes the activity by him/herself with no assistance from a helper. 5-Set-up or Clean-up Assistance-helper sets up or cleans up; patient completes activity. Beaver assists only prior to or following the activity. 4-Supervision or Touching Assistance-helper provides verbal cues and/or touching/steadying and/or contact guard assistance as patient completes activity. Assistance may be provided throughout the activity or intermittently. 3-Partial/Moderate Assistance-helper does LESS THAN HALF the effort. Beaver lifts, holds or supports trunk or limbs, but provides less than half the effort. 2-Substantial/Maximal Assistance-helper does MORE THAN HALF the effort. Beaver lifts or holds trunk or limbs and provides more than half the effort. 6-Glgbusqud-lbckmt does ALL the effort. Patient does none of the effort to complete the activity. Or, the assistance of 2 or more helpers is required for the patient to complete the activity. If activity was not attempted, code reason: 7-Patient Refused. 9-Not Applicable-not attempted and the patient did not perform the activity before the current illness, exacerbation or injury. 10-Not Attempted due to Environmental Limitations-(lack of equipment, weather restraints, etc.). 88-Not Attempted due to Medical Conditions or Safety Concerns. Sit to Stand (QC): 6 Weight Bearing Weight Bearing/Tolerated Weight Bearing/Tolerated Gait Training Does the Patient Walk?: Yes Distance: 250' x 2 Walk 10 feet (QC): 6 Walk 50 ft with 2 Turns(QC): 6 Walk 150 ft (QC): 6 Gait Assistive Device: FWW antalgic, flexed right knee, step to gait sequence Stair Training Stair Training: Handrails/: 1 handrail, uses walker #of Steps: 2 1 Step (curb) (QC): 5 4 Steps (QC): 7 12 Steps (QC): 7 Exercises Seated Therapy Exercises: Ankle pumps, Long arc quads Seated Reps: 15 Assessment Patient declined bed exercises. PT educated patient on importance of performing HEP issued by physician in pre op to ensure full recovery and use of right knee. Patient voices understanding. Patient to dismiss to home on this date. PT Engine Service Repairer Goals Alf Goals PT Alf Goals Time Frame: Jun 30, 2019 Roll Left & Right (QC): 6 Sit to Lying (QC): 6 Lying-Sitting on Side/Bed(QC): 6 Sit to Stand (QC): 6 Chair/Gxk-vx-Zwbep Xfer(QC): 6 Toilet Transfer (QC): 10 Car Transfer (QC): 10 Does the Patient Walk: Yes Walk 10 feet (QC): 6 Walk 50ft with 2 Turns (QC): 6 Walk 150 ft (QC): 6 Walking 10ft on Uneven Surface: 10 1 Step (curb) (QC): 4 4 Steps (QC): 4 12 Steps (QC): 88 Picking up an Object (QC): 88 Does the Pt use WC or Scooter?: No Type: N/A Type: N/A PT Plan Treatment/Plan Treatment Plan: Discontinue PT, goals met (with exception of 4 steps) Treatment Plan: Bed Mobility, Education, Functional Activity Cassy, Functional Strength, Gait, Safety, Therapeutic Exercise, Transfers Treatment Duration: Jun 30, 2019 Frequency: 11 times per week Estimated Hrs Per Day: .25 hour per day Patient and/or Family Agrees t: Yes Time/GCodes Time In: 923 Time Out: 935 Total Billed Treatment Time: 12 Total Billed Treatment 1 visit FA 12 min MATIAS JUÁREZ PT Jun 25, 2019 10:03
--- NOTE | 2019-06-25 11:41 | DISCHARGE SUMMARY ---
DATE OF SERVICE: DIAGNOSES: 1. Right knee primary osteoarthritis. 2. Hypertension. PROCEDURE: Right total knee arthroplasty. SUMMARY: The patient is a 58-year-old gentleman who underwent a right total knee arthroplasty on the day of admission. Postoperatively, he did very well. At the time of discharge, his wound was clean and dry, had no calf tenderness. Negative Carola signs, tolerating his diet well and tolerating pain with oral pain medication. CONDITION AT DISCHARGE: Good. DISCHARGE DIET: Regular. FOLLOWUP: Followup is in three weeks. ACTIVITIES: Weightbearing as tolerated with a walker. Home physical therapy has been arranged. DISCHARGE MEDICATIONS: Home medications, Percocet as needed for pain and aspirin. Job ID: [id number] DocumentID: [id number] Dictated Date: 06/24/2019 17:25:50 Vice President Planning Date: 06/25/2019 11:41:25 Dictated By: ARACELI AGUDELO MD
[2019-06-25 14:45] VITALS: BP 119/69
== END 2019-06-25 14:45 | disposition home health service (06) | DRG 470 ==
LOC: 4TH 05:54 → SURG 05:55 → 4TH 09:55
PROVIDERS: ADMIT Orthopaedic Surgery; ATTEND Orthopaedic Surgery
PROC: 0SRC0J9 Replacement of Right Knee Joint with Synthetic Substitute, Cemented, Open Approach (ICD-10-PCS; principal; 2019-06-23 07:23)
DX: M17.11 Unilateral primary osteoarthritis, right knee (principal); I10 Essential (primary) hypertension; M54.9 Dorsalgia, unspecified; F17.210 Nicotine dependence, cigarettes, uncomplicated; G89.29 Other chronic pain
CPT/HCPCS: 36415; 73560; 85014; 85018; 86850; 86900; 86901; 94664

== ENCOUNTER 2020-05-31 04:41 | Emergency (ER) | payer OTHER, BC ==
[~2020-05-31] VITALS: Ht 172.7 cm; Wt 104.0 kg
[2020-05-31] MEDS ORDERED: ceFAZolin INJECTION 2,000 MG ONE (04:58)
[2020-05-31] MEDS ORDERED: fentaNYL INJECTION 100 MCG/2 ML AMP ONE ×2 (04:58→05:47)
[2020-05-31] MEDS ORDERED: WATER (STERILE) FOR INJECTION 20 ML ONE (04:58)
[2020-05-31] MEDS ORDERED: ceFAZolin 2 GM IV Premixed 50 ML IV ONE (05:00)
[2020-05-31] MEDS ORDERED: NS IV 1000 ML 1,000 ML IV SCH (05:09)
[2020-05-31] MEDS ORDERED: TETANUS,DIPTH,PERTUSS P/F (BOOSTRIX) 0.5 ML VIAL IM ONE ×2 (05:10→05:15)
[2020-05-31] MEDS ORDERED: NS IV 500 ML 500 ML ONE (05:26)
[2020-05-31 05:32] LABS: BASOPHILS # (AUTO) 0.1 10^3/uL (0.0-0.1); BASOPHILS % (AUTO) 1 % (0-10); EOSINOPHILS # (AUTO) 0.3 10^3/uL (0.0-0.3); EOSINOPHILS % (AUTO) 4 % (0-10); HEMATOCRIT 43 % (40-54); HEMOGLOBIN 14.6 g/dL (13.3-17.7); LYMPHOCYTES # (AUTO) 1.4 10^3/uL (1.0-4.0); LYMPHOCYTES % (AUTO) 17 % (12-44); MEAN CORPUSCULAR HEMOGLOBIN 30 pg (25-34); MEAN CORPUSCULAR HGB CONC 34 g/dL (32-36); MEAN CORPUSCULAR VOLUME 89 fL (80-99); MEAN PLATELET VOLUME 11.9 fL (9.0-12.2); MONOCYTES # (AUTO) 0.7 10^3/uL (0.0-1.0); MONOCYTES % (AUTO) 8 % (0-12); NEUTROPHILS % (AUTO) 71 % (42-75); PLATELET COUNT 156 10^3/uL (130-400); WHITE BLOOD COUNT 8.5 10^3/uL (4.3-11.0)
[2020-05-31 05:48] LABS: ALBUMIN 4.2 GM/DL (3.2-4.5); CHLORIDE 106 MMOL/L (98-107); POTASSIUM 3.7 MMOL/L (3.6-5.0); SODIUM 142 MMOL/L (135-145)
[2020-05-31 05:49] LABS: CALCIUM 8.3 MG/DL (8.5-10.1)
[2020-05-31 05:50] LABS: GLUCOSE 136 MG/DL (70-105)
[2020-05-31 05:51] LABS: TOTAL PROTEIN 6.9 GM/DL (6.4-8.2)
[2020-05-31 05:52] LABS: BILIRUBIN,TOTAL 0.4 MG/DL (0.1-1.0); CARBON DIOXIDE 22 MMOL/L (21-32); INR 0.9 (0.8-1.4); PROTHROMBIN TIME PATIENT 12.6 SEC (12.2-14.7)
[2020-05-31 05:54] LABS: ALKALINE PHOSPHATASE 65 U/L (40-136); CREATININE SERUM 1.12 MG/DL (0.60-1.30); GFR ESTIMATED > 60
[2020-05-31 05:55] VITALS: BP 142/80
[2020-05-31 05:55] LABS: BUN/CREATININE RATIO 19
--- NOTE | 2020-05-31 05:55 | NUR ---
FIRST UNIT OF PRBC CONTINUES ON TRANSFER TO [facility] VIA [facility]. 2ND UNIT PRBC TAKEN BY Oscar AL CLINICAL IMPLEMENTATION SPECIALIST FOR INFUSION EN ROUTE.
[2020-05-31 05:57] LABS: ALANINE AMINOTRANSFERASE 53 U/L (0-55)
[2020-05-31] MEDS ORDERED: fentaNYL INJECTION 100 MCG/2 ML AMP IVP ONE (06:00)
--- NOTE | 2020-05-31 06:30 | NUR ---
REPORT GIVEN TO [facility] CHARGE NURSE AT THIS TIME.
--- NOTE | 2020-05-31 06:37 | Diagnostic Imaging Report ---
Indication: Trauma. Right arm laceration 3 views of the right humerus shows no fracture, dislocation or other acute bony abnormality. There is soft tissue injury laterally with no foreign body seen. IMPRESSION: Soft tissue injury. No foreign body is evident. No acute bony abnormality is seen. Dictated by: Dictated on workstation # [id number]
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
== END 2020-05-31 05:55 | disposition short-term general hospital (02) ==
LOC: EDUNIT# 04:41 → ER 04:45
DX: S41.111A Laceration without foreign body of right upper arm, initial encounter (principal); I10 Essential (primary) hypertension; F17.210 Nicotine dependence, cigarettes, uncomplicated; Z23 Encounter for immunization; W11.XXXA Fall on and from ladder, initial encounter
CPT/HCPCS: 73060; 80053; 85025; 85610; 85730; 86850; 86900; 86901; 86920; 93041; 99291; G0390; P9016; 36415; 90715

== ENCOUNTER 2020-06-15 19:59 | Emergency (ER) | payer BC ==
[~2020-06-15] VITALS: Ht 175.2 cm; Wt 104.3 kg
[2020-06-15] MEDS ORDERED: LIDOCAINE 1% INJ 20 ML 20 ML VIAL INJ ONE (20:15)
[2020-06-15 21:40] VITALS: BP 142/94
== END 2020-06-15 21:40 | disposition home or self-care (01) ==
LOC: EDUNIT# 19:59 → ER 20:01
DX: S61.412A Laceration without foreign body of left hand, initial encounter (principal); X58.XXXA Exposure to other specified factors, initial encounter
CPT/HCPCS: 12032

== ENCOUNTER 2020-06-25 08:37 | Emergency (ER) | payer BC ==
[~2020-06-25] VITALS: Ht 170 cm; Wt 77.0 kg
[2020-06-25 08:50] VITALS: BP 0/0
== END 2020-06-25 08:55 | disposition home or self-care (01) ==
LOC: EDUNIT# 08:37 → ER 08:39
DX: S61.412D Laceration without foreign body of left hand, subsequent encounter (principal); X58.XXXD Exposure to other specified factors, subsequent encounter

== ENCOUNTER 2020-09-14 08:00 | Outpatient (RCR) | payer OTHER ==
[~2020-09-14 08:00] MED LIST changes: -LISI40TA PO; +LISI40TA9 PO
== END 2020-09-14 09:36 | disposition home or self-care (01) ==
PROVIDERS: ATTEND Nurse Practitioner Family
DX: M25.521 Pain in right elbow (principal); M25.511 Pain in right shoulder; I10 Essential (primary) hypertension; Z87.828 Personal history of other (healed) physical injury and trauma

== ENCOUNTER 2021-03-02 10:27 | Outpatient (CLI) | payer SELFPAY ==
[~2021-03-02] VITALS: Ht 172.7 cm; Wt 105.2 kg
[2021-03-02 10:20] VITALS: BP 144/77
[2021-03-02] MEDS ORDERED: ACETAMINOPHEN 500 MG TAB (TYLENOL) PO PRN (11:00)
[2021-03-02] MEDS ORDERED: CASIRIVIMAB/IMDEVIMAB 1,200 MG in NS (IVPB) 250 ML IV ONE (11:00)
[2021-03-02] MEDS ORDERED: diphenhydrAMINE 50 MG/ML INJ (BENADRYL) IV PRN (11:00)
[2021-03-02] MEDS ORDERED: EPINEPHrine INJECTION 1 MG/ML AMP IM PRN (11:00)
[2021-03-02] MEDS ORDERED: ONDANSETRON 4 MG/2 ML (SDV) Z0FRAN IV PRN (11:00)
[2021-03-02 11:53] VITALS: BP 147/84
== END 2021-03-02 12:27 | disposition home or self-care (01) ==
LOC: INFUSION 10:27
PROVIDERS: ATTEND Family Medicine
DX: Z23 Encounter for immunization (principal); U07.1 COVID-19

== ENCOUNTER → 2023-02-25 | Outpatient (CLI) | payer OTHER ==
--- NOTE | 2023-02-25 14:22 | Diagnostic Imaging Report ---
Indication: Chest pain COMPARISON: 06/15/2019 TECHNIQUE: 2 radiographs the chest dated 02/25/2023 FINDINGS: The cardiac silhouette is within normal limits in size. No significant pulmonary vascular congestion. The lungs are clear of focal pulmonary opacity. No pleural effusion. No pneumothorax. Scattered osseous degenerative changes without acute osseous abnormality. IMPRESSION: Similar-appearing examination without acute cardiopulmonary abnormality Dictated by: Dictated on workstation # [id number]
--- NOTE | 2023-02-25 15:18 | Diagnostic Imaging Report ---
INDICATION: Shoulder pain COMPARISON: Radiographs of the right humerus dated 05/31/2022. TECHNIQUE: 3 radiographs of the right shoulder dated 02/25/2023. FINDINGS: Moderate degenerative changes of the acromioclavicular joint and glenohumeral joint with associated osteophyte formation. No acute fracture or dislocation. No destructive osseous process. Narrowing of the subacromial space. No suspicious radiopaque foreign body. IMPRESSION: No acute osseous abnormality with moderate degenerative changes present. Narrowing of the subacromial space, which likely relates to underlying chronic rotator cuff tear. Dictated by: Dictated on workstation # [id number]
--- NOTE | 2023-02-25 15:33 | Diagnostic Imaging Report ---
INDICATION: Knee pain, postoperative followup. COMPARISON: 06/23/2019 TECHNIQUE: 2 radiographs of the right knee dated 02/25/2023. FINDINGS: Right total knee arthroplasty is in place. No evidence of hardware complication. No acute fracture or dislocation. No destructive osseous process. No knee joint effusion. No suspicious radiopaque foreign body. Postsurgical dystrophic calcifications are severe in the patella. IMPRESSION: Right total knee arthroplasty without hardware complication or acute osseous abnormality. Dictated by: Dictated on workstation # [id number]
== END ==
LOC: RAD 09:25
PROVIDERS: ATTEND Family Medicine
DX: Z02.71 Encounter for disability determination (principal); R07.9 Chest pain, unspecified; M25.561 Pain in right knee; M19.011 Primary osteoarthritis, right shoulder; Z96.651 Presence of right artificial knee joint
CPT/HCPCS: 71046; 73030; 73560

== ENCOUNTER 2023-05-13 14:33 | Emergency (ER) | payer OTHER ==
[~2023-05-13] VITALS: Ht 168 cm; Wt 106.0 kg
[2023-05-13] MEDS ORDERED: AMIODARONE FOR BOLUS 150 MG in NS (IVPB) 100 ML 100 ML IV ONE ×2 (14:45→16:15)
[2023-05-13] MEDS ORDERED: AMIODARONE FOR DRIP 450 MG in NORMAL SALINE (EXCEL) 250 ML 250 ML IV SCH ×2 (14:45→16:15)
[2023-05-13 14:55] LABS: BASOPHILS % (AUTO) 1 % (0-10); EOSINOPHILS # (AUTO) 0.2 10^3/uL (0.0-0.3); EOSINOPHILS % (AUTO) 2 % (0-10); HEMATOCRIT 47 % (40-54); HEMOGLOBIN 15.9 g/dL (13.3-17.7); LYMPHOCYTES # (AUTO) 1.7 10^3/uL (1.0-4.0); LYMPHOCYTES % (AUTO) 21 % (12-44); MEAN CORPUSCULAR HEMOGLOBIN 31 pg (25-34); MEAN CORPUSCULAR HGB CONC 34 g/dL (32-36); MEAN CORPUSCULAR VOLUME 91 fL (80-99); MEAN PLATELET VOLUME 12.6 fL (9.0-12.2); MONOCYTES # (AUTO) 0.7 10^3/uL (0.0-1.0); MONOCYTES % (AUTO) 8 % (0-12); NEUTROPHILS # (AUTO) 5.7 10^3/uL (1.8-7.8); NEUTROPHILS % (AUTO) 68 % (42-75); PLATELET COUNT 164 10^3/uL (130-400); WHITE BLOOD COUNT 8.4 10^3/uL (4.3-11.0)
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
[2023-05-13] MEDS ORDERED: dilTIAZem DRIP PRE-MIX 125 ML IV SCH (15:00)
[2023-05-13] MEDS ORDERED: dilTIAZem INJ 25 MG/5 ML VIAL IVP ONE (15:00)
[2023-05-13 15:02] LABS: ALBUMIN 4.3 GM/DL (3.2-4.5)
[2023-05-13 15:04] LABS: CALCIUM 9.3 MG/DL (8.5-10.1); INR 0.9 (0.8-1.4); PROTHROMBIN TIME PATIENT 12.7 SEC (12.2-14.7)
[2023-05-13 15:05] LABS: TOTAL PROTEIN 7.3 GM/DL (6.4-8.2)
[2023-05-13 15:07] LABS: BILIRUBIN,TOTAL 0.7 MG/DL (0.1-1.0)
--- NOTE | 2023-05-13 15:07 | Diagnostic Imaging Report ---
CLINICAL INDICATION: Patient with chest pain. EXAM: Portable chest x-ray upright view. COMPARISON: Chest x-ray dated 02/25/2023. FINDINGS: Lungs/pleura: There is interval groundglass opacification involving the midportion of both lung morris. These findings may be related to lung infiltrates or extrathoracic soft tissue. Otherwise, the remainder of the lungs are clear and stable. There is no pneumothorax. There is no pleural effusion. Mediastinum: Unremarkable. Pulmonary vasculature: Unremarkable. Heart: Unremarkable. Bones/extrathoracic soft tissue: There are degenerative spurs involving the thoracic spine. IMPRESSION: There is interval groundglass opacification involving the mid portions of both lung morris. Unknown, if this represents interval infiltrates versus confluence of shadows of extrathoracic soft tissue. Chest x-ray, upright PA and lateral views, with good inspiratory effort for would better evaluate. Dictated by: Dictated on workstation # [id number]
[2023-05-13 15:09] LABS: CREATININE SERUM 1.1 MG/DL (0.60-1.30)
[2023-05-13 15:11] LABS: MAGNESIUM 1.8 MG/DL (1.6-2.4)
[2023-05-13] MEDS ORDERED: ADENOSINE INJECTION 6 MG/2 ML VIAL IV ONE ×2 (16:00)
[2023-05-13] MEDS ORDERED: AMIODARONE 200 MG TABLET PO STA (18:48)
[2023-05-13] MEDS ORDERED: ASPI-1238 PO (19:00)
[2023-05-13] MEDS ORDERED: ASPIRIN 81 MG CHEWABLE TABLET PO ONE (19:00)
[2023-05-13] MEDS ORDERED: AMIO400T5 PO (19:00)
--- NOTE | 2023-05-13 19:02 | Consultation-Cardiology ---
HPI-Cardiology Cardiology Consultation: Date of Consultation 05/13/23 Time Seen by a Provider: 15:50 Date of Admission Attending Physician Leena Rodriguez MD Admitting Physician Admitting Physician: Attending Physician: Consulting Physician MARGIE BARTHOLOMEW MD, MA, FACP, FACC, FSCAI, CCDS Physician requesting Card consult: Dr Fritz HPI: Chief Complaint: Shortness of breath 62 yo man with 5 days of shortness of breath brought by physical exertion and relieved with rest. No cp or palp or syncope. Denies swelling. Denies focal weakness or gen weakness Review of Systems-Cardiology Review of Systems Constitutional: As described under HPI Eyes: No vision change Ears/Nose/Throat: No ear discharge, No nasal drainage, No recent hearing loss Respiratory: As described under HPI Cardiovascular: As described under HPI Gastrointestinal: No diarrhea, No nausea, No vomiting Genitourinary: No dysuria, No hematuria, No urine frequency changes Musculoskeletal: No back pain Skin: No rash, No ulcerations Psychiatric/Neurological: No seizure, No focal weakness, No syncope Hematologic: No bleeding abnormalities BWI-Hjpihh-Nwasgs Hx Patient Social History Smoking Status: Current Everyday Smoker 2nd Hand Smoke Exposure: Yes Alcohol Use?: No Tobacco type used: Cigarettes Immunizations Up To Date Tetanus Booster (TDap): Less than 5yrs Past Medical History PMH As described under Assessment. Family Medical History Family Medical History: Denies fam h/o early CAD or SCD Allergies and Home Medications Allergies Coded Allergies: No Known Drug Allergies (Unverified , 03/02/21) Patient Home Medication List Home Medication List Reviewed: Yes Hydrochlorothiazide (Hydrochlorothiazide) 12.5 Mg Tablet, 12.5 MG PO DAILY, (Reported) Entered as Reported by: MAGI BOCANEGRA on 06/15/19936 Ibuprofen (Ibuprofen) 200 Mg Capsule, 600 MG PO BID, (Reported) Entered as Reported by: MAGI BOCANEGRA on 06/15/19936 Lisinopril (Lisinopril) 40 Mg Tablet, 40 MG PO DAILY, (Reported) Entered as Reported by: MAGI BOCANEGRA on 06/15/19936 Physical Exam-Cardiology Physical Exam Vital Signs/I&O 05/13/23 05/13/23 05/13/23 05/13/23 14:38 14:38 15:03 15:03 Temp 36.0 Pulse 133 120 137 Resp 22 B/P (MAP) 151/117 (128) 122/109 122/109 Pulse Ox 96 98 O2 Delivery Room Air Nasal Cannula O2 Flow Rate 2.00 05/13/23 16:26 Pulse 135 B/P (MAP) 132/113 Capillary Refill : Less Than 3 Seconds Constitutional: AAO x 3, well-developed, well-nourished HEENT: EOMI, hearing is well preserved; No xanthelasmas are seen Neck: carotid pulses are 2 + bilaterally, with good upstrokes Respiratory: No accessory muscle use; chest expansion is symmetric, chest is bilaterally symmetric, other (good, bilateral air entry; exp phase somewhat prolonged) Cardiovascular: regular rate-rhythm, S1 and S2, systolic murmur (soft NATHAN at card base) Gastrointestinal: No tender; soft; No guarding, No rebound; audible bowel sounds Extremities: No clubbing, No cyanosis, No significant edema Neurologic/Psychiatric: oriented x 3, other (moves all limbs equally) Skin: No rash on exposed areas, No ulcerations on exposed areas Data Review Labs Laboratory Tests 05/13/23 14:45: White Blood Count 8.4, Red Blood Count 5.20, Hemoglobin 15.9, Hematocrit 47, Mean Corpuscular Volume 91, Mean Corpuscular Hemoglobin 31, Mean Corpuscular Hemoglobin Concent 34, Red Cell Distribution Width 14.0, Platelet Count 164, Mean Platelet Volume 12.6H, Immature Granulocyte % (Auto) 0, Neutrophils (%) (Auto) 68, Lymphocytes (%) (Auto) 21, Monocytes (%) (Auto) 8, Eosinophils (%) (Auto) 2, Basophils (%) (Auto) 1, Neutrophils # (Auto) 5.7, Lymphocytes # (Auto) 1.7, Monocytes # (Auto) 0.7, Eosinophils # (Auto) 0.2, Basophils # (Auto) 0.0, Immature Granulocyte # (Auto) 0.0, Prothrombin Time 12.7, INR Comment 0.9, Activated Partial Thromboplast Time 32, Sodium Level 142, Potassium Level 4.0, Chloride Level 105, Carbon Dioxide Level 25, Anion Gap 12, Blood Urea Nitrogen 17, Creatinine 1.10, Estimat Glomerular Filtration Rate 76, BUN/Creatinine Ratio 15, Glucose Level 141H, Calcium Level 9.3, Corrected Calcium 9.1, Magnesium Level 1.8, Total Bilirubin 0.7, Aspartate Amino Transf (AST/SGOT) 70H, Alanine Aminotransferase (ALT/SGPT) 178H, Alkaline Phosphatase 70, Myoglobin 171.6H, Troponin I 0.049H, B-Type Natriuretic Peptide 976.9H, Total Protein 7.3, Albumin 4.3 Laboratory Tests 05/13/23 14:45 A/P-Cardiology Assessment/Admission Diagnosis Wide-complex tachycardia, likely incessant VT - unresponsive to Valsalva or iv dilt or iv adenosine (6 mg and 12 mg injections). These resulted only in one or two sinus beats and the wide-complex tachy would recur - responsive to iv amiodarone Minimally elevated troponin, likely type 2 MN, due to persistently elevated heart rate for several days (5 days, by history) but type 1 MN cannot be excluded Chronic tobacco use - advised to quit H/o hypertension Discussion and Recomendations * I saw him multiple times between the initial eval and this writing * His tachycardia responded to iv amio * I discussed his case with Dr Lozano or EP service at . The plan was to admit, continue amio, eval for ACS, then transfer to Dr Lozano probably tomorrow if ACS not an issue * Dr. Fritz call to inform us that the patient has decided to leave against medical advice. Dr Fritz has had a lengthy and detailed discussion with him. He fully understands that his condition may be lethal and that he requires further w/u and treatment and that our strong recommendation is to be hospitalized. Despite this understanding, he wishes to leave (AMA). Advised f/u with his physicians and to return to ER if recurrence of symptoms, new symptoms, or if he simply changes his mind. He understands MARGIE BARTHOLOMEW MD [facility] CCDS May 13, 2023 19:02
[2023-05-13 19:24] VITALS: BP 162/111
== END 2023-05-13 19:25 | disposition left against medical advice (07) ==
LOC: EDUNIT# 14:33 → ER 14:35
DX: R00.0 Tachycardia, unspecified (principal); R79.89 Other specified abnormal findings of blood chemistry; R06.02 Shortness of breath; E66.9 Obesity, unspecified; F17.210 Nicotine dependence, cigarettes, uncomplicated; Z68.37 Body mass index [BMI] 37.0-37.9, adult
CPT/HCPCS: 36415; 71045; 80053; 83735; 83874; 83880; 84484; 85025; 85610; 85730; 93005; 93041; 96365; 96366; 96375

== ENCOUNTER → 2023-05-22 | Outpatient (CLI) | payer SELFPAY ==
[~2023-05-22] MED LIST changes: +AMIO400T5 PO; +ASPI-1238 PO
--- NOTE | 2023-05-22 11:50 | Diagnostic Imaging Report ---
EXAMINATION: Chest 2 view HISTORY: SHORTNESS OF BREATH COMPARISON: 05/13/2023 FINDINGS: The lungs are clear without edema or pneumonia. No pleural effusion or pneumothorax. Heart size is normal. IMPRESSION: 1. Clear lungs. Dictated by: Dictated on workstation # [id number]
== END ==
LOC: RAD 10:30
PROVIDERS: ATTEND Physician Assistant
DX: R06.02 Shortness of breath (principal)
CPT/HCPCS: 71046